=== PATIENT | female | born 1980 | race African-American/Black ===

== ENCOUNTER 2017-07-25 16:24 | Emergency (ER) | payer OTHER ==
[~2017-07-25] VITALS: Ht 177.8 cm; Wt 130.6 kg
[2017-07-25 16:57] LABS: CLARITY,URINE SL CLOUDY (CLEAR); COLOR,URINE YELLOW (YELLOW)
[2017-07-25 16:58] LABS: BILIRUBIN,URINE NEGATIVE (NEGATIVE); KETONES,URINE NEGATIVE (NEGATIVE); LEUKOCYTE ESTERASE ,URINE NEGATIVE (NEGATIVE); NITRITE,URINE NEGATIVE (NEGATIVE); PREGNANCY TEST, URINE POSITIVE (NEGATIVE); PROTEIN,URINE DIPSTICK NEGATIVE (NEGATIVE); URINE UROBILINOGEN 0.2 mg/dL (0.2 - 1)
[2017-07-25 17:10] LABS: EPITHELIAL CELLS,URINE FEW /LPF
--- NOTE | 2017-07-25 18:32 | Diagnostic Imaging Report ---
PROCEDURE:TRANSVAGINAL OBSTETRIC ULTRASOUND, FIRST TRIMESTER COMPARISON:None. INDICATIONS:VAGINAL BLEEDING/ WELL BEING EXAM FINDINGS: 36 year-old female patient G1, P0, with unknown last LMP. Exam limited by patient's large body habitusand overlying bowel gas Multiple sagittal and axial images were obtained of the pelvis transabdominally and transvaginally. Transvaginal images were medically necessary in order to assess the endometrial cavity. Uterus: 9.7 x 6.2 x 6.4 cm. No focal lesions. Normal echogenicity. Gestational sac is identified in the endometrial cavity, with mean gestational sac diameter 2.72 cm, corresponding to a gestational age of 7 weeks, 5 days. Yolk sac is visualized. A single pole is identified, with a CRL of 1.68 cm, corresponding to gestational age of 8 weeks, 1 day. Documented heart rate of 188 BPM. 1.8 x 0.9 x 1.4 cm small subchorionic hemorrhage posterior to the gestational sac. Right ovary: Could not be visualized. Left ovary: Could not be visualized. Adnexa: Unremarkable. No focal lesions. Free fluid: None. CONCLUSION: 1. single, viable IUP with gestational age of 8 weeks, 1 day by CRL and documented heart rate of 180 bpm. 2. Small subchorionic hemorrhage. 3. Both ovaries could not be visualized. Tom Clarke M.D. Dictated by: Tom Clarke M.D. on 07/25/2017 at 18:35 Electronically approved by: Tom Clarke M.D. on 07/25/2017 at 18:35
[2017-07-25 19:14] LABS: BASOPHILS # (AUTO) 0.1 (0.0-0.1); BASOPHILS % 0.5 % (0.0-1.0); EOSINOPHILS # (AUTO) 0.2 (0.0-0.4); EOSINOPHILS % 1.5 % (0.0-6.0); HEMATOCRIT 38.5 % (34.2-44.1); HEMOGLOBIN 12.8 g/dL (12.0-16.0); LYMPHOCYTES # (AUTO) 4.5 (1.0-3.2); LYMPHOCYTES % 30.2 % (18.0-39.1); MEAN CORPUSCULAR HEMOGLOBIN 27.5 pg (28-32); MEAN CORPUSCULAR HGB CONC 33.2 g/dL (31-35); MEAN CORPUSCULAR VOLUME 82.8 fL (81-99); MONOCYTES # (AUTO) 0.9 (0.2-0.8); MONOCYTES % 6.1 % (4.4-11.3); NEUTROPHILS # (AUTO) 9.1 (2.1-6.9); NEUTROPHILS % 61.2 % (38.7-80.0); PLATELET COUNT 249 x10e3/uL (140-360); RED BLOOD COUNT 4.65 x10e6/uL (3.6-5.1); RED CELL DISTRIBUTION WIDTH 13.9 % (11.7-14.4)
[2017-07-25 19:36] LABS: ALANINE AMINOTRANSFERASE 27 IU/L (0-55); ALBUMIN 4.2 g/dL (3.5-5.0); ALBUMIN/GLOBULIN RATIO 1.1 (0.8-2.0); ALKALINE PHOSPHATASE 48 IU/L (40-150); ANION GAP 12.7 mmol/L (8-16); BLOOD UREA NITROGEN 8 mg/dL (7-26); BUN/CREATININE RATIO 10 (6-25); CALCIUM 9.9 mg/dL (8.4-10.2); CARBON DIOXIDE 22 mmol/L (22-29); CHLORIDE 104 mmol/L (98-107); CREATININE, SERUM 0.78 mg/dL (0.57-1.11); EST GLOMERULAR FILTRATION RATE > 60 ML/MIN (60-); GLUCOSE 84 mg/dL (74-118); POTASSIUM 3.7 mmol/L (3.5-5.1); SODIUM 135 mmol/L (136-145)
[2017-07-25 20:00] LABS: HCG,QUANTITATIVE 30538.21 mIU/mL (0-10)
[2017-07-25 20:21] VITALS: BP 148/98
== END 2017-07-25 20:22 | disposition home or self-care (01) ==
LOC: ER 16:24
DX: O20.9 Hemorrhage in early pregnancy, unspecified (principal); R11.0 Nausea
CPT/HCPCS: 36415; 76817; 80053; 81001; 81025; 84702; 85025; 86900; 99283